=== PATIENT | male | born 1985 | race Hispanic/Latino ===

== ENCOUNTER 2021-12-18 13:49 | Inpatient (IN) | payer OTHER ==
[~2021-12-18] VITALS: Ht 165.1 cm; Wt 124.1 kg
[2021-12-18 14:25] LABS: HEMATOCRIT 22.7 % (42-54); LYMPHOCYTES % (AUTO) 32.3 % (21.0-51.0); MEAN CORPUSCULAR HEMOGLOBIN 17.5 pg (27.0-33.0); MEAN CORPUSCULAR HGB CONC 25.1 g/dL (32.0-36.0); MEAN CORPUSCULAR VOLUME 69.6 fL (79-99); NEUTROPHILS % (AUTO) 58.4 % (40.0-77.0); NUCLEATED RED BLOOD CELLS 0.5 % (0.0-0.19); PLATELET COUNT (AUTO) 374 K/uL (130-400); RED BLOOD CELL COUNT(AUTO) 3.26 MIL/uL (4.50-6.20); RED CELL DISTRIBUTION WIDTH 20.4 % (11.0-15.5); WHITE BLOOD COUNT (AUTO) 6.3 K/uL (4.8-10.8)
[2021-12-18 14:31] LABS: CREATININE 0.8 mg/dL (0.5-1.5); POTASSIUM 3.8 mmol/L (3.5-5.1)
[2021-12-18 14:36] LABS: ALBUMIN 3.8 g/dL (3.5-5.0); BILIRUBIN,TOTAL 0.9 mg/dL (0.2-1.0); TOTAL PROTEIN, SERUM 7.9 g/dL (6.0-8.3)
[2021-12-18 14:57] LABS: APPEARANCE,URINE CLEAR (CLEAR); BILIRUBIN,URINE NEGATIVE (NEGATIVE); COLOR,URINE YELLOW (YELLOW); GLUCOSE, URINE (UA) NEGATIVE (NEGATIVE); KETONES,URINE NEGATIVE (NEGATIVE); LEUKOCYTE ESTERASE ,URINE NEGATIVE (NEGATIVE); NITRATE,URINE NEGATIVE (NEGATIVE); OCCULT BLOOD,URINE NEGATIVE (NEGATIVE); PH,URINE 6.5 (5.0-8.0); PROTEIN,URINE NEGATIVE (NEGATIVE); UROBILINOGEN,URINE 0.2 mg/dL (0.2-1.0)
[2021-12-18] MEDS ORDERED: ACETAMINOPHEN 650 MG SUPPOSITORY RC PRN (17:30)
[2021-12-18] MEDS ORDERED: DOCUSATE SODIUM 100 MG CAP PO PRN (17:30)
[2021-12-18] MEDS ORDERED: ACETAMINOPHEN 325 MG TAB PO PRN (17:30)
[2021-12-18] MEDS ORDERED: DEXTROSE 50%-WATER 50 ML DISP.SYRIN IV PRN (18:00)
[2021-12-18] MEDS ORDERED: POTASSIUM CHLORIDE 20MEQ/100ML 100 ML IV PRN ×3 (18:00→18:30)
[2021-12-18] MEDS ORDERED: LIDOCAINE HCL-MPF 1% 2ML VIAL IV PRN ×3 (18:00→18:30)
[2021-12-18] MEDS ORDERED: MAGNESIUM 2GM PREMIX 50ML 50 ML IV PRN (18:00)
[2021-12-18] MEDS ORDERED: POTASSIUM CHLORIDE 10% ELIXIR 20 MEQ/15 ML UDCUP PO PRN (18:00)
[2021-12-18] MEDS ORDERED: KCL 20 MEQ ERTAB PO PRN (18:00)
[2021-12-18] MEDS ORDERED: GLUCAGON 1MG KIT 1 MG ML IM PRN (18:00)
[2021-12-18 18:13] LABS: RETICULOCYTE % (AUTO) 2.7 % (0.42-2.23)
[2021-12-18 18:19] LABS: HEMATOCRIT 20.2 % (42-54)
[2021-12-18 18:47] LABS: % IRON SATURATION 2.5 % (30-44)
[2021-12-18 19:11] LABS: HEMOGLOBIN A1C 4.6 % (4.0-6.0)
[2021-12-18 22:30] VITALS: BP 121/51
[2021-12-19 04:00] VITALS: BP 104/59
[2021-12-19 04:10] LABS: HEMATOCRIT 25.8 % (42-54); MEAN CORPUSCULAR HEMOGLOBIN 19.1 pg (27.0-33.0); MEAN CORPUSCULAR HGB CONC 26.4 g/dL (32.0-36.0); MEAN CORPUSCULAR VOLUME 72.5 fL (79-99); NUCLEATED RED BLOOD CELLS 0.4 % (0.0-0.19); RED BLOOD CELL COUNT(AUTO) 3.56 MIL/uL (4.50-6.20); WHITE BLOOD COUNT (AUTO) 5.5 K/uL (4.8-10.8)
[2021-12-19 04:25] LABS: INR 0.94 (0.85-1.15); PROTHROMBIN TIME 10.3 SEC (9.6-11.6)
[2021-12-19 04:27] LABS: PARTIAL THROMBOPLASTIN TIME 25.4 SEC (26.3-35.5)
[2021-12-19 04:32] LABS: CREATININE 0.8 mg/dL (0.5-1.5); MAGNESIUM 2.2 mg/dL (1.80-2.40); PHOSPHORUS 4.5 mg/dL (2.5-4.9); POTASSIUM 4.1 mmol/L (3.5-5.1)
[2021-12-19 04:42] LABS: % IRON SATURATION 5.7 % (30-44)
[2021-12-19 04:59] LABS: THYROID STIMULATING HORMONE 51.54 uIU/mL (0.36-3.74)
[2021-12-19 05:02] LABS: HEMOGLOBIN A1C 4.7 % (4.0-6.0)
[2021-12-19 07:30] VITALS: BP 126/73
[2021-12-19] MEDS ORDERED: LEVOTHYROXINE 100MCG VIAL IV SCH (08:30)
[2021-12-19] MEDS: PANTOPRAZOLE 40 MG TAB DR PO SCH (09:16)
[2021-12-19 11:00] VITALS: BP 123/78
[2021-12-19 11:16] LABS: HEMATOCRIT 30.1 % (42-54)
[2021-12-19] MEDS: IRON SUCROSE COMPLEX 100 MG/5 ML VIAL IVP SCH (13:33)
[2021-12-19 16:00] VITALS: BP 113/69
[2021-12-19 16:58] LABS: HEMATOCRIT 29.1 % (42-54)
[2021-12-19] MEDS ORDERED: PEG 3350/NA SULF,BICARB,CL/KCL 4000 ML SOLN PO ONE (17:00)
[2021-12-19 20:00] VITALS: BP 131/75
[2021-12-19 23:26] LABS: HEMATOCRIT 29.8 % (42-54)
[2021-12-20] VITALS (23 sets, daily range): BP systolic 94–127; BP diastolic 54–78
[2021-12-20 04:38] LABS: HEMATOCRIT 28.2 % (42-54); MEAN CORPUSCULAR HEMOGLOBIN 19.9 pg (27.0-33.0); MEAN CORPUSCULAR HGB CONC 26.6 g/dL (32.0-36.0); MEAN CORPUSCULAR VOLUME 74.8 fL (79-99); NUCLEATED RED BLOOD CELLS 0.3 % (0.0-0.19); RED BLOOD CELL COUNT(AUTO) 3.77 MIL/uL (4.50-6.20); RED CELL DISTRIBUTION WIDTH 22.1 % (11.0-15.5); WHITE BLOOD COUNT (AUTO) 5.9 K/uL (4.8-10.8)
[2021-12-20 04:44] LABS: CREATININE 0.9 mg/dL (0.5-1.5); POTASSIUM 3.9 mmol/L (3.5-5.1)
[2021-12-20] MEDS ORDERED: LEVOTHYROXINE 100 MCG TABLET PO SCH (06:30)
[2021-12-20] MEDS ORDERED: LEVOTHYROXINE 50 MCG TABLET PO SCH (06:30)
[2021-12-20] MEDS ORDERED: KETAMINE 50MG/ML SYRINGE 50 MG/ML DISP.SYRIN IV ONE (07:45)
[2021-12-20] MEDS ORDERED: PROPOFOL 10 MG/ML 20ML VIAL IV ONE (07:45)
[2021-12-20] MEDS ORDERED: LIDOCAINE PF 100MG/5ML (2%) SYRINGE 5ML ONE (07:45)
[2021-12-20] MEDS ORDERED: GLYCOPYRROLATE 1 MG/5 ML SYRINGE ONE (07:45)
[2021-12-20] MEDS ORDERED: MIDAZOLAM HCL 1 MG/ML 2ML VIAL ONE ×2 (08:15→08:26)
[2021-12-20] MEDS ORDERED: LEVOTHYROXINE 100MCG VIAL IV SCH ×2 (08:30→10:30)
[2021-12-20] MEDS: PANTOPRAZOLE 40 MG TAB DR PO SCH (09:00)
[2021-12-20] MEDS ORDERED: IRON SUCROSE COMPLEX 100 MG in 0.9%NACL 50ML 50 ML IV SCH (09:00)
[2021-12-20] MEDS: IRON SUCROSE COMPLEX 100 MG/5 ML VIAL IVP SCH (12:25)
[2021-12-20] MEDS ORDERED: POLY17PO4 PO (16:39)
[2021-12-20] MEDS ORDERED: ASCO500T20 PO (16:39)
[2021-12-20] MEDS ORDERED: LEVO125C4 PO (16:39)
[2021-12-20] MEDS ORDERED: FERS325 PO (16:39)
== END 2021-12-20 17:20 | disposition home or self-care (01) | DRG 394 ==
LOC: EDH 13:49 → EDHIP 17:26 → 4CH 22:25
PROVIDERS: ADMIT Internal Medicine Critical Care Medicine; ATTEND Internal Medicine Critical Care Medicine
PROC: 30233N1 Transfusion of Nonautologous Red Blood Cells into Peripheral Vein, Percutaneous Approach (ICD-10-PCS; 2021-12-18)
PROC: 5A09357 Assistance with Respiratory Ventilation, Less than 24 Consecutive Hours, Continuous Positive Airway Pressure (ICD-10-PCS; 2021-12-18)
PROC: 5A09357 Assistance with Respiratory Ventilation, Less than 24 Consecutive Hours, Continuous Positive Airway Pressure (ICD-10-PCS; 2021-12-19)
PROC: 0DB98ZX Excision of Duodenum, Via Natural or Artificial Opening Endoscopic, Diagnostic (ICD-10-PCS; principal; 2021-12-20)
PROC: 0DJD8ZZ Inspection of Lower Intestinal Tract, Via Natural or Artificial Opening Endoscopic (ICD-10-PCS; 2021-12-20)
PROC: 0DB68ZX Excision of Stomach, Via Natural or Artificial Opening Endoscopic, Diagnostic (ICD-10-PCS; 2021-12-20)
DX: K64.9 Unspecified hemorrhoids (principal); Z68.42 Body mass index [BMI] 45.0-49.9, adult; K92.1 Melena; G47.33 Obstructive sleep apnea (adult) (pediatric); E03.9 Hypothyroidism, unspecified; K42.9 Umbilical hernia without obstruction or gangrene; E66.01 Morbid (severe) obesity due to excess calories; K31.89 Other diseases of stomach and duodenum; D50.9 Iron deficiency anemia, unspecified
CPT/HCPCS: 36415; 43239; 45378; 74176; 80048; 80053; 81003; 82270; 82607; 82728; 82948; 83036; 83540; 83550; 83735; 84100; 84439; 84443; 84481; 84484; 85014; 85018; 85025; 85027; 85610; 85730; 86038; 86156; 86215; 86235; 86701; 86850; 86870; 86900; 86901; 86922; 87390; 94660; A4606; G0378; J1756; J2001; J2250; J2704; J3490; J7030; P9016

== ENCOUNTER 2022-02-22 14:21 | Emergency (ER) | payer OTHER ==
[~2022-02-22] VITALS: Ht 167.6 cm; Wt 129.3 kg
[~2022-02-22 14:21] MED LIST: ASCO500T20 PO; FERS325 PO; LEVO125C4 PO; POLY17PO4 PO
[2022-02-22] MEDS: KETOROLAC 60 MG VIAL (30MG/ML) IM ONE (14:37)
[2022-02-22] MEDS ORDERED: TRAM1TAB2 PO (16:50)
[2022-02-22 17:11] VITALS: BP 120/74
== END 2022-02-22 17:10 | disposition home or self-care (01) ==
LOC: EDH 14:21
DX: S93.602A Unspecified sprain of left foot, initial encounter (principal); S93.402A Sprain of unspecified ligament of left ankle, initial encounter; E03.9 Hypothyroidism, unspecified; E66.01 Morbid (severe) obesity due to excess calories; Z68.42 Body mass index [BMI] 45.0-49.9, adult; Z79.1 Long term (current) use of non-steroidal anti-inflammatories (NSAID); X58.XXXA Exposure to other specified factors, initial encounter; Y93.89 Activity, other specified; Y92.89 Other specified places as the place of occurrence of the external cause; Y99.8 Other external cause status
CPT/HCPCS: 99284; 73700 ×2; 73610; 73630; 96372; J1885

== ENCOUNTER 2024-08-14 00:04 | Emergency (ER) | payer OTHER ==
[~2024-08-14] VITALS: Ht 167.6 cm; Wt 154.7 kg
[~2024-08-14 00:04] MED LIST changes: +TRAM1TAB2 PO
[2024-08-14 01:14] LABS: INR 0.94 (0.85-1.15); PROTHROMBIN TIME 10.6 SEC (9.6-11.6)
[2024-08-14 01:15] VITALS: TEMP 98
[2024-08-14 01:15] LABS: PARTIAL THROMBOPLASTIN TIME 26.3 SEC (26.3-35.5)
[2024-08-14 01:17] LABS: EOSINOPHILS # (AUTO) 0.18 K/uL (0.00-0.70); EOSINOPHILS % (AUTO) 2.5 % (0.0-8.0); HEMATOCRIT 28.5 % (42-54); IMMATURE GRANULOCYTE ABSOLUTE 0.02 K/uL (0-1); LYMPHOCYTES # (AUTO) 2.4 K/uL (1.0-4.8); LYMPHOCYTES % (AUTO) 32.5 % (21.0-51.0); MEAN CORPUSCULAR HEMOGLOBIN 17.9 pg (27.0-33.0); MEAN CORPUSCULAR HGB CONC 25.6 g/dL (32.0-36.0); MEAN CORPUSCULAR VOLUME 69.9 fL (79-99); MONOCYTES # (AUTO) 0.5 K/uL (0.1-1.0); MONOCYTES % (AUTO) 6.4 % (3.0-13.0); NEUTROPHILS # (AUTO) 4.3 K/uL (1.8-7.7); NEUTROPHILS % (AUTO) 58.3 % (40.0-77.0); NUCLEATED RED BLOOD CELLS 0.4 % (0.0-0.19); PLATELET COUNT (AUTO) 288 K/uL (130-400); RED BLOOD CELL COUNT(AUTO) 4.08 MIL/uL (4.50-6.20); RED CELL DISTRIBUTION WIDTH 23.3 % (11.0-15.5); WHITE BLOOD COUNT (AUTO) 7.3 K/uL (4.8-10.8)
[2024-08-14 01:28] LABS: CREATININE 0.8 mg/dL (0.5-1.3)
[2024-08-14 01:32] LABS: ALBUMIN 4.1 g/dL (3.5-5.0); BILIRUBIN,TOTAL 0.7 mg/dL (0.2-1.0); TOTAL PROTEIN, SERUM 7.9 g/dL (6.0-8.3)
--- NOTE | 2024-08-14 02:06 | ERN ---
General Chief Complaint: Rectal Bleed Stated Complaint: C/O DIZZINESS, FATIGUE, RECTAL BLEEDING Time Seen by MD: 00:09 Source: patient History of Present Illness Initial Comments Patient is a 39-year-old male with a past medical history pernicious anemia presenting to the emergency department with rectal bleeding. Patient does report having an extensive history of internal and external hemorrhoids. He has had surgery on the hemorrhoids in the past. He does also has a history of chronic anemia secondary to his hemorrhoids and B12 deficiency. He was followed by a GI specialist. Patient receives iron transfusions every two weeks with last iron transfusion performed at [facility] one week ago. Today he does report some rectal bleeding which he was 100% sure that is coming from his hemorrhoids. He developed some generalized body weakness wanted to make sure his hemoglobin was stable. Denies any chest pain, shortness for breath, or any other symptoms at this time. Allergies: Coded Allergies: No Known Drug Allergies (Unverified Allergy, Unknown, 12/18/21) Home Meds Active Scripts Tramadol HCl/Acetaminophen (Ultracet Tablet) 1 Each Tablet, 1 EACH PO TIDP for sprain left ankle/foot, #30 TAB Prov:DANIELLA DORANTES 02/22/22 Polyethylene Glycol 3350 (Miralax) 17 Gm Powd.pack, 17 GM PO DAILY for 30 Days, #30 PACKET Prov:VIPUL HILTON 12/20/21 Ascorbic Acid (Vitamin C) 500 Mg Tablet, 500 MG PO BIDMEALS for 30 Days, #60 TAB Prov:VIPUL HILTON 12/20/21 Ferrous Sulfate (Ferrous Sulfate) 325 Mg Ectab, 325 MG PO BID for 30 Days, #60 TAB.EC Prov:VIPUL HILTON 12/20/21 Levothyroxine Sodium (Levothyroxine) 125 Mcg Capsule, 125 MCG PO DAILY for 30 Days, #30 CAP Prov:VIPUL HILTON 12/20/21 Past Medical History Past Medical History: Anemia Medical History Other: Morbidly obese Past Surgical History: None Surgical History Other: HEMMOROIDS WITH HEMMOROIDECTOMY Family History Family History: Negative Social History Social History: Lives with family ROS Dictation CONSTITUTIONAL: Negative except for HPI HEAD/FACE: Negative except for HPI EENT: Negative except for HPI RESPIRATORY: Negative except for HPI GASTROINTESTINAL/ABDOMINAL: Negative except for HPI GENITOURINARY: Negative except for HPI MUSCULOSKELETAL: Negative except for HPI INTEGUMENTARY: Negative except for HPI NEUROLOGICAL/PSYCH: Negative except for HPI HEMATOLOGIC/LYMPHATIC: Negative except for HPI All Systems Negative, Except as noted above. 13 point review of systems assessed and all negative except for above. Physical Exam Physical Exam Dictation Vital Signs reviewed General Appearance: Alert, oriented x 3, no acute distress, well developed, nourished. Head and Face: non-traumatic. Eyes: PERRL, pink conjunctivas, eyelid no trauma, anterior chamber with arcus senilis. Ears: Pinnas intact and no signs of trauma or erythema ear canals clear and no discharge TM no erythema Nose: No discharge, no bleeding. Oropharynx: Mouth normal, tongue pink, pharynx clear,no erythema, tonsils no exudates, no abscesses noted, mucous membrane moist Neck: Supple, non-tender, no thyromegaly, no masses, no JVD, no bruits Breast:Deferred Chest:No tenderness, no crepitus, no paradoxical movement, no retractions Lungs:Clear, well-ventilated, symmetric, no rales, no wheezing, no rhonchi, no stridor, good breath sounds bilaterally Heart: Regular rate, regular rhythm, no murmur, no gallops Vascular: no peripheral edema, Abdomen: Soft, positive bowel sounds, nondistended, no guarding, nontender, no rebound, no masses no hepatomegaly, no splenomegaly, no Penny's sign, no hernias. Rectal: Deferred Genital: Deferred Neurological: Normal speech, motor function intact, sensory function intact Musculoskeletal: Neck nontender, full range of motion, back nontender, full range of motion, Extremities: nontender, full range of motion Skin: Color pink, dry, no turgor, no rash, no lacerations, no abrasions, no contusions. Lymphatic: Deferred Results Laboratory and Microbiology Lab and Micro Result Laboratory Tests Test 08/14/24 00:32 White Blood Count 7.3 K/uL (4.8-10.8) Red Blood Count 4.08 MIL/uL (4.50-6.20) L Hemoglobin 7.3 g/dL (14.0-18.0) L Hematocrit 28.5 % (42-54) L Mean Corpuscular Volume 69.9 fL (79-99) L Mean Corpuscular Hemoglobin 17.9 pg (27.0-33.0) L Mean Corpuscular Hemoglobin Concent 25.6 g/dL (32.0-36.0) L Red Cell Distribution Width 23.3 % (11.0-15.5) H Platelet Count 288 K/uL (130-400) Mean Platelet Volume 10.6 fL (7.5-10.5) H Immature Granulocyte % (Auto) 0.3 % (0-1) Neutrophils (%) (Auto) 58.3 % (40.0-77.0) Lymphocytes (%) (Auto) 32.5 % (21.0-51.0) Monocytes (%) (Auto) 6.4 % (3.0-13.0) Eosinophils (%) (Auto) 2.5 % (0.0-8.0) Basophils (%) (Auto) 0.0 % (0.0-5.0) Neutrophils # (Auto) 4.3 K/uL (1.8-7.7) Lymphocytes # (Auto) 2.4 K/uL (1.0-4.8) Monocytes # (Auto) 0.5 K/uL (0.1-1.0) Eosinophils # (Auto) 0.18 K/uL (0.00-0.70) Basophils # (Auto) 0.00 K/uL (0.00-0.20) Absolute Immature Granulocyte (auto 0.02 K/uL (0-1) Nucleated Red Blood Cells 0.4 % (0.0-0.19) H Prothrombin Time 10.6 SEC (9.6-11.6) Prothromb Time International Ratio 0.94 (0.85-1.15) Activated Partial Thromboplast Time 26.3 SEC (26.3-35.5) Sodium Level 139 mmol/L (136-145) Potassium Level 4.0 mmol/L (3.5-5.1) Chloride Level 102 mmol/L (101-111) Carbon Dioxide Level 27 mmol/L (21-32) Blood Urea Nitrogen 9 mg/dL (7-18) Creatinine 0.8 mg/dL (0.5-1.3) Glomerular Filtration Rate Calc 115 mL/min (>90) Random Glucose 138 mg/dL (70-105) H Total Calcium 8.9 mg/dL (8.5-10.1) Total Bilirubin 0.7 mg/dL (0.2-1.0) Aspartate Amino Transf (AST/SGOT) 58 U/L (10-37) H Alanine Aminotransferase (ALT/SGPT) 136 U/L (12-78) H Alkaline Phosphatase 101 U/L (50-136) Total Protein 7.9 g/dL (6.0-8.3) Albumin 4.1 g/dL (3.5-5.0) Labs Reviewed?: Yes MDM MDM: Patient is a 39-year-old male with a past medical history pernicious anemia presenting to the emergency department with rectal bleeding. Patient does report having an extensive history of internal and external hemorrhoids. He has had surgery on the hemorrhoids in the past. He does also has a history of chronic anemia secondary to his hemorrhoids and B12 deficiency. He was followed by a GI specialist. Patient receives iron transfusions every two weeks with last iron transfusion performed at [facility] one week ago. Today he does report some rectal bleeding which he was 100% sure that is coming from his hemorrhoids. He developed some generalized body weakness wanted to make sure his hemoglobin was stable. Denies any chest pain, shortness for breath, or any other symptoms at this time. On physical examination the patient is in no acute distress. Initial vital signs reveal a normal blood pressure at 130/71. Temperature is 98.2. Heart rate is 95 beats per minute. CBC shows a hemoglobin of 7.3 which appears to be stable when compared to previous hemoglobins. No need for emergent blood transfusion at this time. Chemistries are stable. Blood pressure has been stable in the emergency department. The patient is in no acute distress. Patient will be discharged home with s upportive management. Return precautions discussed Differential diagnosis: Chronic anemia, hypertension, electrolyte abnormality There are no social concerns with this patient. Prescription drug management Prescriptions will include: None Medical management and examination interpretation discussions were had by me with other qualified healthcare professionals as indicated for the patient's care. ED Course Orders Procedure Category Date Status Time Comprehensive LAB 08/14/24 Complete Metabolic Panel 00:14 Basic Metabolic Panel LAB 08/14/24 Complete 00:14 Pt And Ptt LAB 08/14/24 Complete 00:14 Type And Screen BBK 08/14/24 In Process 00:14 Cbc With Differential LAB 08/14/24 In Process 01:09 Vital Signs Date Time Temp Pulse Resp B/P (MAP) Pulse Ox O2 Delivery O2 Flow Rate FiO2 08/14/24 01:15 98.1 92 18 128/75 99 Room Air* 0 21 08/14/24 00:07 98.2 95 20 130/71 98 Room Air DX & DISP Disposition: Discharge Departure Impression: Primary Impression: Chronic anemia Additional Impression: History of hemorrhoids Condition: Stable Additional Instructions: Your blood work today shows a hemoglobin of 7.3 which appears to be stable when compared to previous hemoglobins. The remainder of your blood work is unremarkable. No need for a blood transfusion at this time. Follow up with the primary care doctor in 2-3 days for repeat evaluation. Referrals: LUIS CARLOS CALIXTO MD (PCP) I have reviewed the case, and I agree with, Diagnosis and Plan I performed the substantive portion of the visit. I have reviewed and personally made and approve the management plan that is documented in the note by myself or the KERRIE. I acknowledge for responsibility for the patient's management plan. GLENN COTA Aug 14, 2024 02:06
[2024-08-14 02:16] VITALS: BP 126/83; PULSE 88; RESP 18; O2SAT 98
== END 2024-08-14 02:17 | disposition home or self-care (01) ==
LOC: EDH 00:04
DX: D64.9 Anemia, unspecified (principal); E66.01 Morbid (severe) obesity due to excess calories; K62.5 Hemorrhage of anus and rectum; Z79.890 Hormone replacement therapy
CPT/HCPCS: 36415; 80053; 85025; 85610; 85730; 86156; 86850; 86870; 86900; 86901; 99283

== ENCOUNTER → 2024-10-09 | Outpatient (CLI) | payer OTHER ==
[~2024-10-09] MED LIST changes: -LEVO125C4 PO; +LEVO125C5 PO; +PRED10TA3 PO; +PRED20TA3 PO; +PRED50TA2 PO
== END | disposition home or self-care (01) ==
LOC: RAH 12:45
PROVIDERS: ATTEND Chiropractor
DX: I51.7 Cardiomegaly (principal); R07.89 Other chest pain
CPT/HCPCS: 93306